=== PATIENT | male | born 1985 | race African-American/Black ===

== ENCOUNTER → 2018-12-15 | Emergency (ER) | payer MEDICAID ==
[~2018-12-15] VITALS: Ht 162.6 cm; Wt 72.6 kg
[~2018-12-15] MED LIST: Bacitracin Oint UD TOPIC ONE
[2018-12-15 15:10] VITALS: BP 154/87
[2018-12-15 15:20] VITALS: BP 154/87
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
--- NOTE | 2018-12-15 15:22 | NUR ---
ED Nurse Note: pt affect very anxious and repeatative speech pattern pt very diaphoretic. security aware of pt.
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
--- NOTE | 2018-12-15 15:30 | NUR ---
ED Nurse Note: pt not in room apparent elopement. electrical discharge machine operator notifying lapd of pt.
--- NOTE | 2018-12-15 15:58 | NUR ---
ED Nurse Note:lapd here to interview pt. aware of pt name and circumstances
== END | disposition left against medical advice (07) ==
LOC: EMR 15:39
DX: S21.131A Puncture wound without foreign body of right front wall of thorax without penetration into thoracic cavity, initial encounter (principal); Y04.2XXA Assault by strike against or bumped into by another person, initial encounter; Y92.9 Unspecified place or not applicable
CPT/HCPCS: 99281